=== PATIENT | female | born 1965 | race Caucasian/White ===

== ENCOUNTER → 2019-07-01 | Outpatient (CLI) | payer OTHER | END | disposition home or self-care (01) | LOC: LAB SHORT 08:23 → PLD 08:23 | DX: N84.1 Polyp of cervix uteri (principal); N95.0 Postmenopausal bleeding | CPT/HCPCS: 88305 ==

== ENCOUNTER → 2019-10-13 | Outpatient (CLI) | payer OTHER ==
[2019-10-15 15:07] LABS: HPV 16 Negative (Negative); HPV 18 Negative (Negative); HPV OTHER HR TYPES Negative (Negative)
== END | disposition home or self-care (01) ==
LOC: LAB SHORT 17:58 → LAB 17:58
PROVIDERS: Nurse Practitioner Women's Health
DX: Z12.4 Encounter for screening for malignant neoplasm of cervix (principal); Z91.89 Other specified personal risk factors, not elsewhere classified
CPT/HCPCS: 87624; G0123

== ENCOUNTER 2020-11-28 14:10 | Emergency (ER) | payer OTHER ==
[~2020-11-28] VITALS: Ht 167.6 cm; Wt 86.2 kg
== END 2020-11-28 16:59 | disposition left against medical advice (07) ==
LOC: ER 14:10
DX: M25.562 Pain in left knee (principal); Z53.21 Procedure and treatment not carried out due to patient leaving prior to being seen by health care provider
CPT/HCPCS: 99282

== ENCOUNTER → 2022-03-26 | Outpatient (CLI) | payer OTHER | END | disposition home or self-care (01) | LOC: LAB SHORT 09:09 | DX: D48.5 Neoplasm of uncertain behavior of skin (principal) | CPT/HCPCS: 88305 ==

== ENCOUNTER → 2023-04-11 | Outpatient (CLI) | payer OTHER | END | disposition home or self-care (01) | LOC: LAB SHORT 10:11 → LAB 10:11 | DX: N39.0 Urinary tract infection, site not specified (principal) | CPT/HCPCS: 87077; 87086; 87147; 87186 ==

== ENCOUNTER 2023-06-26 12:12 | Day surgery (SDC) | payer OTHER ==
[~2023-06-26] VITALS: Ht 167.6 cm; Wt 73.2 kg
[2023-06-26] MEDS ORDERED: PROG100 PO (12:59)
[2023-06-26] MEDS ORDERED: TRESIBA FL100 UNIT/2 SC (13:00)
[2023-06-26] MEDS ORDERED: EUTHYROX175 MC1 PO (13:00)
[2023-06-26] MEDS ORDERED: ZOLOFT50 MG PO (13:01)
[2023-06-26] MEDS ORDERED: PRAVASTATIN SOD20 MG PO (13:02)
[2023-06-26] MEDS ORDERED: LISI5 PO (13:02)
[2023-06-26] MEDS ORDERED: LYUMJEV KW100 UNIT/1 SC (13:05)
--- NOTE | 2023-06-26 13:19 | NUR ---
06/26/23 1319 Jeannette Ferreira CORRECT EYE MARKED PER PT AND CONSENT, RIGHT EYE. TETRACANE PLACE IN RIGHT EYE AT 1255. PLEGET PLACED IN RIGHT EYE AT 1257. PT TOLERATED WELL. CALL LIGHT PLACED IN PT'S HAND.
[2023-06-26 14:20] VITALS: BP 107/62
--- NOTE | 2023-06-26 14:27 | NUR ---
06/26/23 1427 JOSSY SINGLETARY IV REMOVED. WNL. CANNULA INTACT. LIZ WELL
== END 2023-06-26 14:38 | disposition home or self-care (01) ==
LOC: ORSCSDS 12:12
PROVIDERS: Ophthalmology
PROC: 08RJ3JZ Replacement of Right Lens with Synthetic Substitute, Percutaneous Approach (ICD-10-PCS; principal; 2023-06-26 13:30)
DX: E10.36 Type 1 diabetes mellitus with diabetic cataract (principal); H25.11 Age-related nuclear cataract, right eye; E10.319 Type 1 diabetes mellitus with unspecified diabetic retinopathy without macular edema; E07.9 Disorder of thyroid, unspecified; Z79.4 Long term (current) use of insulin; Z79.899 Other long term (current) drug therapy
CPT/HCPCS: 82947; J2250; J2765; J3010; J3301; J7040; V2632

== ENCOUNTER 2024-12-23 12:46 | Day surgery (SDC) | payer OTHER ==
[~2024-12-23] VITALS: Ht 160 cm; Wt 84.7 kg
[~2024-12-23 12:46] MED LIST: Balanced Salt Epinephrine Irrigation Solution 500 mL IR SCH; Diazepam 5 MG Tab PO PRN; Diazepam 5 MG Tab PO SCH; EUTHYROX175 MC1 PO; LISI5 PO; LYUMJEV KW100 UNIT/1 SC; Lidocaine HCl/Pf 1% 5 ML VIAL XX SCH; Moxifloxacin HCL 0.5 MG/0.1 ML 0.4MLSYR LEFTEYE SCH; Ondansetron 4 MG SoluTab MM PRN; PHENYLEPHRINE\\TROPICAMIDE\\TETRACAINE OPHTHALMIC DILATING SOLN LEFTEYE PRN; PRAVASTATIN SOD20 MG PO; PROG100 PO; Povidone-Iodine 450 DROP/30 ML Solution LEFTEYE SCH; Povidone-Iodine 450 DROP/30 ML Solution ONE; TRESIBA FL100 UNIT/2 SC; Tetracaine HCl/Pf 0.5% Opth Soln 4 ml ONE; Triamcinolone Inj Susp 40 MG / ML 1ML Vial INJ SCH; Triamcinolone Inj Susp 40 MG / ML 1ML Vial ONE; ZOLOFT50 MG PO
[2024-12-23] MEDS ORDERED: REPATHA SU140 MG/1 M SQ (13:10)
[2024-12-23] MEDS ORDERED: ESTRADIOL TD (13:11)
[2024-12-23] MEDS ORDERED: Midazolam HCl 1MG / ML 2ML Vial ONE (13:33)
[2024-12-23] MEDS ORDERED: propofoL 20 ML IV ONE (13:37)
[2024-12-23 14:00] VITALS: BP 125/65
--- NOTE | 2024-12-23 14:15 | NUR ---
12/23/24 1415 Felipa Krause D/C INSTRUCTIONS GIVEN TO PT, UNDERSTANDING VERBALIZED. PT HAS ALL BELONGINGS, INCLUDING EYE KIT & D/C PACKET. PT DENIES PAIN/NAUSEA, TOLERATING JUICE W/O COMPLAINT. VSS, ON RA. PT WHEELED TO PRIVATE VEHICLE, STEADY GAIT NOTED UPON TRANSFER FROM TO VEHICLE. NO VISIBLE SIGNS OF DISTRESS NOTED.
== END 2024-12-23 14:14 | disposition home or self-care (01) ==
LOC: ORSCSDS 12:46
PROVIDERS: Ophthalmology
PROC: 08RK3JZ Replacement of Left Lens with Synthetic Substitute, Percutaneous Approach (ICD-10-PCS; principal; 2024-12-23 14:00)
DX: E10.36 Type 1 diabetes mellitus with diabetic cataract (principal); H25.812 Combined forms of age-related cataract, left eye; Z96.1 Presence of intraocular lens; E10.319 Type 1 diabetes mellitus with unspecified diabetic retinopathy without macular edema; Z79.4 Long term (current) use of insulin; Z79.899 Other long term (current) drug therapy
CPT/HCPCS: 82947; J2250; J2704; J3301; V2632

== ENCOUNTER → 2025-02-24 | Outpatient (CLI) | payer OTHER, BC ==
[~2025-02-24] MED LIST changes: -Balanced Salt Epinephrine Irrigation Solution 500 mL IR SCH; -Diazepam 5 MG Tab PO PRN; -Diazepam 5 MG Tab PO SCH; +ESTRADIOL TD; -Lidocaine HCl/Pf 1% 5 ML VIAL XX SCH; -Moxifloxacin HCL 0.5 MG/0.1 ML 0.4MLSYR LEFTEYE SCH; -Ondansetron 4 MG SoluTab MM PRN; -PHENYLEPHRINE\\TROPICAMIDE\\TETRACAINE OPHTHALMIC DILATING SOLN LEFTEYE PRN; -Povidone-Iodine 450 DROP/30 ML Solution LEFTEYE SCH; -Povidone-Iodine 450 DROP/30 ML Solution ONE; +REPATHA SU140 MG/1 M SQ; -Tetracaine HCl/Pf 0.5% Opth Soln 4 ml ONE; -Triamcinolone Inj Susp 40 MG / ML 1ML Vial INJ SCH; -Triamcinolone Inj Susp 40 MG / ML 1ML Vial ONE
[2025-02-24 18:37] LABS: Microalbumin, Random Urine <5.000 mg/L (0.000-20.000)
== END ==
LOC: LAB 14:38 → LAB SHORT 14:38
PROVIDERS: Nurse Practitioner Family
DX: E10.21 Type 1 diabetes mellitus with diabetic nephropathy (principal); E78.2 Mixed hyperlipidemia; E03.5 Myxedema coma
CPT/HCPCS: 82043; 82570